=== PATIENT | male | born 1975 | race Asian ===

== ENCOUNTER 2017-05-04 23:49 | Day surgery (SDC) | payer OTHER ==
--- NOTE | 2017-05-04 23:55 | PDOC ---
History of Present Illness - General Chief Complaint: Pain, Acute Stated Complaint: FLANK PAIN RADIATING INTO RLQ Time Seen by Provider: 05/04/17 23:53 - History of Present Illness Initial Comments: 05/05/17 00:47 This 42-year-old man with no significant past medical history presents with approximately 12 hours of right lower quadrant abdominal pain with some radiation to the right flank. Pain somewhat relieved with hip/knee flexion. Patient states that he also has had some nausea with vomiting (3 episodes/ partially digested food without blood or coffee ground emesis). No history of fever or chills. He denies hematuria/dysuria/urinary frequency. He states he has had pain similar to this in the past but these episodes resolved quickly. No history of kidney stones. On no medications No known ALLERGIES Past History - Past Medical History Allergies/Adverse Reactions: Allergies Allergy/AdvReac Type Severity Reaction Status Date / Time No Known Allergies Allergy Verified 05/04/17 23:50 Home Medications: Ambulatory Orders NK [No Known Home Medication] 05/04/17 Review of Systems - Review of Systems Able to Perform ROS?: Yes Comments:: 12 point review of systems is negative except for what is noted in the history of present illness *Physical Exam - Physical Exam Comments: GENERAL: Adult male, alert and oriented 3, in mild distress secondary to lower abdominal pain HEAD: Normal with no signs of trauma. EYES: PERRLA, EOMI, sclera anicteric, conjunctiva clear. ENT: Ears normal, nares patent, oropharynx clear without exudates. Dry mucous membranes. NECK: Normal range of motion, supple without lymphadenopathy, JVD, or masses. LUNGS: Breath sounds equal, clear to auscultation bilaterally. No wheezes, and no crackles. HEART:Regular rate and rhythm, normal S1 and S2 without murmur, rub or gallop. ABDOMEN:.normal bowel sounds; point tenderness right lower quadrant (McBurney's point) with positive rebound. No involuntary guarding/ no masses EXTREMITIES: Normal range of motion, no edema. No clubbing or cyanosis. No erythema, or tenderness. NEUROLOGICAL: Cranial nerves II through XII grossly intact. Normal speech. No focal neurological deficits. MUSCULOSKELETAL: Back non-tender to palpation, no CVA tenderness SKIN: Warm, Dry, normal turgor, no rashes or lesions noted. ED Treatment Course - LABORATORY CBC & Chemistry Diagram: 05/05/17 00:05 05/05/17 00:05 Medical Decision Making - Medical Decision Making 05/05/17 02:41 Abdominal/pelvic CT with oral and IV contrast positive for acute appendicitis ( 1.4 cm diameter fluid filled distal appendix with adjacent fat haziness) no evidence of free fluid/free air or abscess Patient given Zosyn 3.325 g IV Patient does not have a private physician who admits to this hospital. [facility] hospitalist service contacted as well as General surgery group ( [facility]) 05/05/17 02:[address] Joyner. Patient will be admitted to [facility] service. 05/05/17 03:12 Case discussed with of [facility]. Because patient has no underlying medical problems, he will be admitted to Dr Guevara's service (23 hour satellite). INR/type and screen will be sent and LR started at [address] Guevara will see the patient in the a.m. and surgery planned , timing to be determined pending today's surgical schedule. Dr Joyner informed of change. 12-lead electrocardiogram shows normal sinus rhythm at 62 beats per minute; axis , wave forms and intervals are all normal. 05/05/17 03:50 Chest x-ray, PA and lateral performed: NAD *DC/Admit/Observation/Transfer Diagnosis at time of Disposition: Acute appendicitis Qualifiers: Acute appendicitis type: with localized peritonitis Qualified Code(s): K35.3 - Acute appendicitis with localized peritonitis - Discharge Dispostion Condition at time of disposition: Stable Admit: Yes - Referrals - Patient Instructions - Post Discharge Activity
[2017-05-05] MEDS ORDERED: KETOROLAC TROMETHAMINE 30 MG/1 ML VIAL IVPUSH ONE (00:44)
[2017-05-05] MEDS ORDERED: SODIUM CHLORIDE 1,000 ML IV STA (00:44)
[2017-05-05] MEDS ORDERED: ONDANSETRON 4 MG/2 ML VIAL IVPUSH ONE (00:44)
[2017-05-05] MEDS ORDERED: KETOROLAC TROMETHAMINE 30 MG/1 ML VIAL ONE (00:49)
[2017-05-05] MEDS ORDERED: ONDANSETRON 4 MG/2 ML VIAL ONE (00:49)
[2017-05-05 00:57] LABS: BASOPHIL 0.1 % (0-2.0); EOSINOPHIL 0.6 % (0-4.5); MCH 31.4 pg (25.7-33.7); MCHC 34.2 g/dl (32.0-35.9); MEAN CELL VOLUME 91.9 fl (80-96); MEAN PLT VOLUME 8.7 fl (7.5-11.1); NEUTROPHILS 83.9 % (42.8-82.8); PLATELET COUNT 189 K/MM3 (134-434); RDW 12.8 % (11.9-15.9); WHITE BLOOD COUNT 11.7 K/mm3 (4.0-10.0)
[2017-05-05 01:17] LABS: URINE APPEARANCE TURBID; URINE BILIRUBIN NEGATIVE (NEGATIVE); URINE BLOOD NEGATIVE (NEGATIVE); URINE COLOR YELLOW; URINE GLUCOSE (UA) NEGATIVE (NEGATIVE); URINE KETONE TRACE (NEGATIVE); URINE NITRITE NEGATIVE (NEGATIVE); URINE PROTEIN NEGATIVE (NEGATIVE); URINE UROBILINOGEN NEGATIVE mg/dL (0.2-1.0)
[2017-05-05 01:23] LABS: ALBUMIN 4.1 g/dl (3.4-5.0); ALK PHOS 93 U/L (45-117); ANION GAP 7 (8-16); BILIRUBIN,TOTAL 0.7 mg/dL (0.2-1.0); CALCIUM 8.3 mg/dL (8.5-10.1); CO2 28 mmol/L (21-32); CREATININE 0.8 mg/dL (0.7-1.3); GLUCOSE,RANDOM 108 mg/dL (74-106); SGOT/AST 16 U/L (15-37); SGPT/ALT 40 U/L (12-78); TOT PROT 7.1 g/dl (6.4-8.2)
[2017-05-05] MEDS ORDERED: PIPERACILLIN/TAZOBACTAM 3.375 GM VIAL IVPB ONE (02:37)
[2017-05-05] MEDS ORDERED: PIPERACILLIN/TAZOB 3.375 GM 50 ML IVPB ONE (02:44)
[2017-05-05] MEDS ORDERED: morphine CARPU-JECT 2 MG/1 ML DISP.SYRIN IVPUSH PRN (02:54)
[2017-05-05] MEDS ORDERED: LACTATED RINGERS SOLUTION 1,000 ML IV SCH ×2 (03:00→16:30)
[2017-05-05 04:10] VITALS: BMI 29.0
[2017-05-05 04:11] LABS: INR 1.15 (0.82-1.09)
[2017-05-05] MEDS: LACTATED RINGERS SOLUTION 1,000 ML/1,000 ML INFUS.BAG IV SCH (04:18)
[2017-05-05] MEDS ORDERED: PIPERACILLIN/TAZOB 3.375 GM/50 ML PRE-DOCKED IVPB ONE (08:30)
--- NOTE | 2017-05-05 09:17 | HP ---
Admitting History and Physical - Admission Chief Complaint: RLQ pain, n/v History of Present Illness: 42yo healthy M has had cold symptoms since Thursday - nasal congestion, cough, for which he used Delsym - and on Thursday evening had some chills and abdominal discomfort with diarrhea after a meal and mild RLQ pain. He felt better after using the bathroom, and Thursday ate normally with a big lunch, but afterward began having RLQ pain that continued to get worse over the course of the day. He tried chicken soup late in the day and vomited several times after, but kept down some water around 10pm. He could not get comfortable sleeping, so came to ER. In ER, he had wbc 11.[address] showed fluid-filled, dilated distal appendix c /w appendicitis. He was given a dose of Zosyn and fluids and kept NPO. This morning, he feels better with no sig pain and no nausea. History Source: Patient Limitations to Obtaining History: No Limitations - Past Medical History ENT: Yes: Other (cold/URI now) - Past Surgical History Additional Past Surgical History: dental surgery - Smoking History Smoking history: Current every day smoker Have you smoked in the past 12 months: Yes Aproximately how many cigarettes per day: 5 (vapes/day) If you are a former smoker, when did you quit?: 1 MONTH AGO - cut down from 10- 15 cigs/day to 5 vapes/day - Alcohol/Substance Use Hx Alcohol Use: Yes (social) History of Substance Use: reports: None - Social History Usual Living Arrangement: Yes: With Spouse, With Child ADL: Independent 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 denies: Fever Eyes: reports: Other (wears glasses). denies: Recent Change in Vision HENT: reports: Nasal Congestion (since Thursday). denies: Difficult Swallowing, Hearing Loss, Throat Pain Neck: denies: Swollen Glands, Tenderness Cardiovascular: denies: Chest Pain, Palpitations Respiratory: reports: Cough (since Thursday, productive in mornings). denies: SOB Gastrointestinal: reports: Abdominal Pain (with hpi), Diarrhea (with hpi), Nausea (with hpi), Vomiting (with hpi). denies: Constipation Genitourinary: denies: Burning, Dysuria, Frequency Musculoskeletal: denies: Back Pain, Joint Pain, Muscle Pain Integumentary: denies: Change in Color, Rash Neurological: denies: Dizziness, Headache Psychiatric: denies: Anxiety, Depression Physical Examination Vital Signs: Vital Signs Temperature 98.5 F 05/05/17 06:26 Pulse Rate 59 L 05/05/17 06:26 Respiratory Rate 18 05/05/17 08:08 Blood Pressure 94/48 05/05/17 06:26 O2 Sat by Pulse Oximetry (%) 98 05/05/17 08:08 Constitutional: Yes: Well Nourished, No Distress, Calm Eyes: Yes: Conjunctiva Clear, EOM Intact HENT: Yes: Atraumatic, Normocephalic Neck: Yes: Supple, Trachea Midline Cardiovascular: Yes: Regular Rate and Rhythm. No: Murmur Respiratory: Yes: Regular, CTA Bilaterally, Cough (occasional). No: Rhonchi, Wheezes Gastrointestinal: Yes: Normal Bowel Sounds, Soft, Tenderness (focal RLQ at McBurney's without guarding or rebound). No: Distention ...Rectal Exam: Yes: Deferred Renal/: No: CVA Tenderness - Left, CVA Tenderness - Right Musculoskeletal: No: Back Pain, Joint Swelling Extremities: No: Cool, Cyanosis Edema: No Peripheral Pulses WNL: Yes Peripheral Pulses: Left Doralis Pedis: 2+, Right Dorsalis Pedis: 2+ Integumentary: No: Jaundice, Rash Neurological: Yes: Alert, Oriented Psychiatric: Yes: Alert, Oriented Labs: CBC, BMP 05/05/17 00:05 05/05/17 00:05 CMP Sodium 138 mmol/L (136-145) 05/05/17 00:05 Potassium 3.9 mmol/L (3.5-5.1) 05/05/17 00:05 Chloride 103 mmol/L (98-107) 05/05/17 00:05 Carbon Dioxide 28 mmol/L (21-32) 05/05/17 00:05 Anion Gap 7 (8-16) L 05/05/17 00:05 BUN 9 mg/dL (7-18) 05/05/17 00:05 Creatinine 0.8 mg/dL (0.7-1.3) 05/05/17 00:05 Creat Clearance w eGFR > 60 (>60) 05/05/17 00:05 Random Glucose 108 mg/dL (74-106) H 05/05/17 00:05 Calcium 8.3 mg/dL (8.5-10.1) L 05/05/17 00:05 Total Bilirubin 0.7 mg/dL (0.2-1.0) 05/05/17 00:05 AST 16 U/L (15-37) 05/05/17 00:05 ALT 40 U/L (12-78) 05/05/17 00:05 Alkaline Phosphatase 93 U/L (45-117) 05/05/17 00:05 Total Protein 7.1 g/dl (6.4-8.2) 05/05/17 00:05 Albumin 4.1 g/dl (3.4-5.0) 05/05/17 00:05 INR, PTT INR 1.15 (0.82-1.09) H 05/05/17 03:15 Urine Test Results Urine Color Yellow 05/05/17 00:05 Urine Appearance Turbid 05/05/17 00:05 Urine pH 5.0 (5.0-8.0) 05/05/17 00:05 Ur Specific [place] 1.025 (1.001-1.035) 05/05/17 00:05 Urine Protein Negative (NEGATIVE) 05/05/17 00:05 Urine Glucose (UA) Negative (NEGATIVE) 05/05/17 00:05 Urine Ketones Trace (NEGATIVE) H 05/05/17 00:05 Urine Blood Negative (NEGATIVE) 05/05/17 00:05 Urine Nitrite Negative (NEGATIVE) 05/05/17 00:05 Urine Bilirubin Negative (NEGATIVE) 05/05/17 00:05 Imaging - Results Cat Scan: Report Reviewed, Image Reviewed (dilated distal appendix, fluid-filled , to 1.4cm, with haziness - appendicitis) Problem List - Problems (1) Acute appendicitis with localized peritonitis Assessment/Plan: admitted 23H/satellite NPO/IVF until after surgery DVT prophylaxis pain meds prn Zosyn perioperatively Discussed with patient risks, benefits and alternatives of laparoscopic possible open appendectomy, including but not limited to bleeding, infection, injury to adjacent structures, intestinal leak or injury, intraabdominal abscess , need for further procedures, ; alternatives include antibiotics, delayed or no surgery - risks of this include failure of nonoperative therapy, perforation, sepsis, recurrence, . Patient desires to proceed with operation - will take to OR for above. Informed consent signed for same. anticipate resuming po postop d/c home when ambulating, voiding, george po, on oral pain meds Code(s): K35.3 - ACUTE APPENDICITIS WITH LOCALIZED PERITONITIS
[2017-05-05 09:38] LABS: URINE LEUK ESTERASE Negative (NEGATIVE)
[2017-05-05] MEDS ORDERED: PIPERACILLIN/TAZOB 4.5 GM 4.5 GM/100 ML BAG IVPB ONE ×2 (10:00→18:00)
[2017-05-05] MEDS ORDERED: BUPIVACAINE HCL/PF 0.5% (5MG/ML) 10 ML VIAL ONE (13:20)
[2017-05-05] MEDS ORDERED: GUM MASTIC/STORAX/MSAL/ALCOHOL 1 DRP DROPSBTL MC ONE (13:20)
[2017-05-05] MEDS ORDERED: MIDAZOLAM HCL 2 MG/2 ML SINGLE DOSE VIAL ONE (13:46)
[2017-05-05] MEDS ORDERED: ROCURONIUM BROMIDE 50 MG/5 ML VIAL ONE ×2 (14:06→14:49)
[2017-05-05] MEDS ORDERED: LIDOCAINE HCL 2% 100 MG/5 ML DISP.SYRIN ONE (14:07)
[2017-05-05] MEDS ORDERED: ePHEDrine SULFATE 50 MG/1 ML AMPULE ONE (14:32)
[2017-05-05] MEDS ORDERED: NEOSTIGMINE METHYLSULFATE 0.5 MG/ML - 10 ML MDV ONE (14:56)
--- NOTE | 2017-05-05 16:18 | OP ---
Operative Note - Note: Operative Date: 05/05/17 Pre-Operative Diagnosis: acute appendicitis with localized peritonitis Operation: laparoscopic appendectomy Findings: large, inflamed appendix, adherent to sidewall and base of cecum - no sig fluid in pelvis Post-Operative Diagnosis: Same as Pre-op Surgeon: Sanya Guevara Anesthesiologist/RHEOLOGIST: Bassam Collier (w/Pia) Anesthesia: General, Local (20ml 1% lidocaine + 0.5% marcaine) Specimens Removed: appendix to pathology Estimated Blood Loss (mls): 15 Drains & Tubes with Location: Pereira removed at end of case Drains, Volume Out (mls): 150 (UOP) Fluid Volume Replaced (mls): 2,700 (crystalloid) Operative Report Dictated: Yes
[2017-05-05] MEDS ORDERED: IBUPROFEN 600 MG TABLET (FP) PO PRN (16:21)
[2017-05-05] MEDS ORDERED: ACETAMINOPHEN 325 MG TABLET (FP) PO PRN (16:21)
[2017-05-05] MEDS ORDERED: oxyCODONE HCL 5 MG TABLET PO PRN ×2 (16:21→16:29)
[2017-05-05] MEDS ORDERED: ONDANSETRON 4 MG/2 ML VIAL IVPUSH PRN (16:29)
[2017-05-05] MEDS ORDERED: PIPERACILLIN/TAZOB 4.5 GM 4.5 GM in DEXTROSE 5%-WATER - 100 ML IVPB ONE (18:00)
[2017-05-05] MEDS: DOCUSATE SODIUM 100 MG CAPSULE (FP) PO SCH ×2 (18:06→21:20)
--- NOTE | 2017-05-05 18:28 | EKG ---
Test Reason : Blood Pressure : / mmHG Vent. Rate : 062 BPM Atrial Rate : 062 BPM P-R Int : 136 ms QRS Dur : 092 ms QT Int : 428 ms P-R-T Axes : 021 000 014 degrees QTc Int : 434 ms NORMAL SINUS RHYTHM NORMAL ECG NO PREVIOUS ECGS AVAILABLE REPEAT EKG IF CLINICALLY INDICATED Confirmed by MABEL TORRES MD ([id number]) on 05/05/2017 6:28:28 PM Referred By: JO BRANDON Confirmed By:MABEL TORRES MD
[2017-05-06] MEDS: LACTATED RINGERS SOLUTION 1,000 ML/1,000 ML INFUS.BAG IV SCH (08:29)
--- NOTE | 2017-05-06 10:17 | PN ---
Progress Note (short form) - Note Progress Note: Pt sitting comfortably in bed. Denies n/v denies sob VAS 2/10 No apparent anesthesia complications. S/p appendectomy POD#1 -cont PO pain meds
[2017-05-06 14:40] VITALS: BP 94/56; PULSE 70; TEMP 98
--- NOTE | 2017-05-06 23:15 | DS ---
Physical Examination Vital Signs: Vital Signs Temperature 98.0 F 05/06/17 13:30 Pulse Rate 70 05/06/17 13:30 Respiratory Rate 19 05/06/17 13:30 Blood Pressure 94/56 05/06/17 13:30 O2 Sat by Pulse Oximetry (%) 95 05/06/17 13:30 Findings/Remarks: Pt seen and examined in bed. No complaints, tolerating diet. Voiding and ambulating. No BM yet. Pain mostly in umbilical site and when moving much or coughing. Feels much better overall. Constitutional: Yes: Well Nourished, No Distress, Calm Cardiovascular: Yes: Regular Rate and Rhythm. No: Murmur Respiratory: Yes: Regular, CTA Bilaterally Gastrointestinal: Yes: Normal Bowel Sounds, Soft, Distention (minimal), Tenderness (mild RLQ and incisional, mainly umbilical) Extremities: No: Cool, Cyanosis Integumentary: Yes: Incision (x3, dressed). No: Rash Wound/Incision: Yes: Steri Strips (under dressings), Dressing Dry and Intact (x3 ). No: Dressing Removed Neurological: Yes: Alert, Oriented Discharge Summary Reason For Visit: APPENDICITIS acute appendicitis with localized peritonitis Procedures: Principal: laparoscopic appendectomy Hospital Course: 42yo healthy M presented to ER with RLQ pain associated with some n/v, anorexia and chills, which started after he began having cold symptoms on Thursday. In the ER, he had wbc 11.7, and CT showed dilated, fluid-filled distal appendix. He was taken for laparoscopic appendectomy with findings of a very inflamed, enlarged appendix with normal base, somewhat adherent to the cecal base/veil of Treves and sidewall. Postop course has been unremarkable - he is ambulating, voiding, tolerating po and using nonnarcotic oral pain medications. He is discharged home to / in 2 weeks in clinic. Condition: Good - Instructions Diet, Activity, Other Instructions: Postoperative instructions: You had a laparoscopic appendectomy on 05/05/[address] Sanya Guevara of [facility]. Activity: Resume your usual activities gradually, but no heavy exertion or lifting more than 10-15 pounds for 1 month. Remove dressings 48 hours after surgery; sticky tapes underneath will fall off by themselves. You may shower daily starting then, just pat the incision areas dry. Eat lightly at first, but advance to your usual diet as tolerated. Pain: For pain, you may use and alternate Tylenol (acetaminophen) and/or ibuprofen every 6 hours each as needed; this means that you can take one OR the other at 3-hour intervals. If you are prescribed a Tylenol/narcotic combination for severe pain, use it instead of plain Tylenol as needed and switch back when your pain starts decreasing. Do not take more than 4000mg of acetaminophen in a day. Take medications as prescribed or indicated on the labeling. Follow-up: Call Dr. Guevara's office at [phone] to make your postop appointment (Thursday ~2 weeks after surgery). Clinic is held in the Diagnostic Center on the first floor of [facility]. Call the office if you have: * increasing pain not responsive to pain medication * fever of 101F or higher * vomiting * unusual or increasing bleeding or drainage from wounds * increasing redness or swelling at wound sites * inability to urinate Also, see your primary medical doctor within 1-2 weeks. Disposition: HOME - Home Medications Comprehensive Discharge Medication List: Ambulatory Orders NK [No Known Home Medication] 05/04/17 Tylenol and ibuprofen prn for pain
--- NOTE | 2017-05-11 09:49 | PATH ---
Surgical Pathology Report Patient Name: RICKEY DIXON [facility]. Rec. #: [id number] /Age/Gender: 1975 (Age: 42) / M Account: [id number] [facility] Taken: 05/05/2017 Received: 05/05/2017 Reported: 05/11/2017 Physicians: Sanya Guevara M.D. Specimen(s) Received APPENDIX Clinical History Appendicitis with localized peritonitis Final Diagnosis APPENDIX, LAPAROSCOPIC APPENDECTOMY: ACUTE AND CHRONIC HEMORRHAGIC APPENDICITIS AND PERIAPPENDICITIS. Electronically Signed Tootie Busby M.D. Gross Description Received in formalin, labeled "appendix," is a 4.2 cm. in length vermiform appendix with a stapled margin of resection and moderate attached fat. The serosa is hinton-marvin with attached exudate and adhesions. Sectioning reveals a hemorrhagic lumen. The wall of the appendix averages 0.1 cm. in thickness. Production Inspector sections are submitted in one cassette. 05/06/2017 [facility]05/06/2017
== END 2017-05-06 15:10 | disposition home or self-care (01) ==
LOC: FER 23:49 → FM/S 05-05 03:10 → UNDOADMOB 05-05 03:10 → FASU 05-05 08:41 → FM/S 05-05 16:09 → FASU 05-06 15:10
PROVIDERS: ATTEND Surgery
PROC: 0DTJ4ZZ Resection of Appendix, Percutaneous Endoscopic Approach (ICD-10-PCS; principal; 2017-05-05 14:35)
DX: K35.3 Acute appendicitis with localized peritonitis (principal)
CPT/HCPCS: 36415; 71020-TC; 74177-TC; 80053; 81003; 85025; 85610; 86850; 86900; 86901; 88304-TC; 93005; 94010; 94760; 99284-25

== ENCOUNTER 2017-05-16 12:35 | Emergency (ER) | payer OTHER ==
[2017-05-16 12:42] VITALS: BP 128/79; PULSE 86; TEMP 98.2; BMI 28.3
--- NOTE | 2017-05-16 13:03 | PDOC ---
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 Guevara had patient come for wound check because he had a small amount of drainage out of the umbilical opening. No fever and otherwise feels well. Patient was evaluated by Dr. Guevara in the ER today, she evaluated that there was no real drainage, that this was not an infection, that needed antibiotics, and appeared to be more of a seroma. She bandaged it. Patient will follow-up in her office on Thursday. GENERAL/CONSTITUTIONAL: No fever, weakness. dizziness HEAD, EYES, EARS, NOSE AND THROAT: No change in vision. No ear pain or discharge. No sore throat. CARDIOVASCULAR: No chest pain RESPIRATORY: No shortness of breath or cough GASTROINTESTINAL: No pain, nausea, vomiting, diarrhea or constipation GENITOURINARY: No dysuria MUSCULOSKELETAL: No neck or back pain SKIN: No rash, + small amount of drainage from operative site NEUROLOGIC: No headache, vertigo, loss of consciousness, or loss of sensation. GENERAL: The patient is awake, alert, and fully oriented, in no acute distress. HEAD: Normal with no signs of trauma. EYES: Pupils equal, round and reactive to light, sclera anicteric, conjunctiva clear. ENT: pharynx: no erythema, no exudate, uvula midline NECK: supple CHEST: clear, nontender, rr ABD: soft, nontender, + tiny amount of drainage expressed by surgeon at umbilical laparoscopic site, no cellulitis, probable seroma EXTREMITIES: Normal range of motion, no edema. NEUROLOGICAL: Normal speech, normal gait. SKIN: Warm, Dry 05/16/17 15:04 Past History - Past Medical History Allergies/Adverse Reactions: Allergies Allergy/AdvReac Type Severity Reaction Status Date / Time No Known Allergies Allergy Verified 05/16/17 12:42 Home Medications: Ambulatory Orders NK [No Known Home Medication] 05/04/17 Anemia: No Asthma: No Cancer: No Cardiac Disorders: No CVA: No COPD: No CHF: No Dementia: No Diabetes: No GI Disorders: No Disorders: No HTN: No Hypercholesterolemia: No Liver Disease: No Seizures: No Thyroid Disease: No - Surgical History Cardiac Surgery: Yes - Suicide/Smoking/Psychosocial Hx Smoking History: Never smoked Have you smoked in the past 12 months: Yes Number of Cigarettes Smoked Daily: 5 (vapes/day) If you are a former smoker, when did you quit?: 1 MONTH AGO - cut down from 10- 15 cigs/day to 5 vapes/day 'Breaking Loose' booklet given: 05/04/17 Hx Alcohol Use: No Drug/Substance Use Hx: No Substance Use Type: None *Physical Exam - Vital Signs Last Vital Signs Temp Pulse Resp BP Pulse Ox 98.2 F 86 20 128/79 98 05/16/17 12:37 05/16/17 12:37 05/16/17 12:37 05/16/17 12:37 05/16/17 12:37 Medical Decision Making - Medical Decision Making 05/16/17 15:08 Post for laproscopic appendectomy with small drainage out of the umbilical site , seen by his surgeon, no indication for further workup or antibiotics. He will follow the instructions given for showering, no bath, and just keeping a bandage over it and following up with her in the office by Thursday and will call her if there are any other issues. *DC/Admit/Observation/Transfer Diagnosis at time of Disposition: Visit for wound check - Discharge Dispostion Disposition: HOME Condition at time of disposition: Stable Admit: No - Referrals - Patient Instructions Printed Discharge Instructions: DI for Wound Infection Additional Instructions: you can take shower, no bath. keep gauze on it and see on thursday call her with any concerns - Post Discharge Activity
--- NOTE | 2017-05-16 13:17 | CONSULT ---
Consult Consult Specialty:: General Surgery Referred by:: ER Reason for Consultation:: umbilical site drainage - History of Present Illness Chief Complaint: pink drainage from umbilical site History of Present Illness: 42yo M s/p lap appendectomy 05/05/17, d/c home the next day, has been doing well. Peeled steristrips off on POD#3 at home. Has been showering, eating well, voiding and having BMs ok with occasional diarrhea he relates to diet. No pain meds. Back at work but not lifting or exerting heavily. This morning, he noted some pinkish drainage from his umbilical site and a tiny hole at the top of the incision. No significant pain or redness, but he was concerned and called the office. As described, it sounded like most likely that a seroma had drained spontaneously, but he was told he could come to ER to be seen if he wanted to. Pt is seen in fast track. No nausea or fevers. He has a bandaid over the site. - History Source History Provided By: Patient Limitations to Obtaining History: No Limitations - Past Medical History Additional Medical History: none - Past Surgical History Past Surgical History: Yes: Appendectomy (laparoscopic 05/05/17 at [facility] by me) - Alcohol/Substance Use Hx Alcohol Use: No History of Substance Use: reports: None - Smoking History Smoking history: Former smoker Have you smoked in the past 12 months: Yes Aproximately how many cigarettes per day: 5 (vapes/day) If you are a former smoker, when did you quit?: 1 MONTH AGO - cut down from 10- 15 cigs/day to 5 vapes/day - Social History ADL: Independent 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 History of Recent Travel: No Home Medications - Allergies Allergies/Adverse Reactions: Allergies Allergy/AdvReac Type Severity Reaction Status Date / Time No Known Allergies Allergy Verified 05/16/17 12:42 - Home Medications Home Medications: Ambulatory Orders NK [No Known Home Medication] 05/04/17 Family Disease History - Family Disease History Family History: Unremarkable Review of Systems - Review of Systems Constitutional: denies: Chills, Fever Eyes: denies: Blurred Vision, Recent Change in Vision HENT: denies: Difficult Swallowing, Nasal Congestion, Throat Pain Neck: denies: Swollen Glands, Tenderness Cardiovascular: denies: Chest Pain, Palpitations Respiratory: denies: Cough, SOB Gastrointestinal: reports: Diarrhea (occasional). denies: Abdominal Pain, Constipation, Nausea, Vomiting Genitourinary: denies: Burning, Dysuria Musculoskeletal: denies: Back Pain, Joint Pain Integumentary: reports: Incision (x3), Pruritis (mild at incision sites). denies: Rash Neurological: denies: Dizziness, Headache Psychiatric: denies: Anxiety, Depression Physical Exam Vital Signs: Vital Signs Temperature 98.2 F 05/16/17 12:37 Pulse Rate 86 05/16/17 12:37 Respiratory Rate 20 05/16/17 12:37 Blood Pressure 128/79 05/16/17 12:37 O2 Sat by Pulse Oximetry (%) 98 05/16/17 12:37 Constitutional: Yes: Well Nourished, No Distress, Calm Eyes: Yes: Conjunctiva Clear, EOM Intact HENT: Yes: Atraumatic, Normocephalic Neck: Yes: Supple, Trachea Midline Cardiovascular: Yes: Regular Rate and Rhythm. No: Murmur Respiratory: Yes: Regular, CTA Bilaterally Gastrointestinal: Yes: Normal Bowel Sounds, Soft. No: Distention, Hernia, Tenderness ...Rectal Exam: Yes: Deferred Renal/: No: CVA Tenderness - Left, CVA Tenderness - Right Musculoskeletal: No: Joint Stiffness, Joint Swelling Extremities: No: Cool, Cyanosis Integumentary: Yes: Incision (x3). No: Bruising, Erythema, Rash Wound/Incision: Yes: Clean/Dry, Well Approximated (x3), Open to air (LLQ and suprapubic incisions healing well), Dressing Removed (bandaid from umbilicus), Draining (umbilical site with small scab at inferior end, tiny opening at superior end, barely a drop of serous fluid expressible with effort, but no s/s infection, no purulence, no blood). No: Reddened, Bleeding Neurological: Yes: Alert, Oriented Psychiatric: Yes: Alert, Oriented Problem List - Problems (1) Postoperative seroma of skin after non-dermatologic procedure Assessment/Plan: seroma spontaneously drained from umbilical site no signs or symptoms of infection site appears clean with scant if any residual drainage dressed with folded gauze and tape pt advised to continue daily showers but no baths keep site covered with gauze and tape over next few days after showering f/u with me as scheduled on 05/20 in clinic Code(s): L76.34 - POSTPROC SEROMA OF SKIN, SUBCU FOLLOWING OTHER PROCEDURE (2) Postoperative visit Code(s): Z48.89 - ENCOUNTER FOR OTHER SPECIFIED SURGICAL AFTERCARE
== END 2017-05-16 13:09 | disposition home or self-care (01) ==
LOC: JERFT 12:35
DX: Z48.01 Encounter for change or removal of surgical wound dressing (principal)
CPT/HCPCS: 99281-25